=== PATIENT | male | born 1960 | race Caucasian/White ===

== ENCOUNTER 2024-01-09 17:53 | Emergency (ER) | payer BC, SELFPAY ==
[2024-01-09 17:58] VITALS: BP 150/98; PULSE 109; RESP 16; TEMP 37.3; O2SAT 96; BMI 26.6
[2024-01-09] MEDS: MORPHINE 4 MG/ML INJ IVP (18:46)
[2024-01-09] MEDS: MIDAZOLAM HCL 1 MG/ML inj 2 MG IVP (18:46)
[2024-01-09 19:14] VITALS: PULSE 89; O2SAT 95
[2024-01-09 19:15] VITALS: PULSE 87; O2SAT 96
[2024-01-09 19:16] VITALS: BP 126/66; PULSE 86; O2SAT 95
--- NOTE | 2024-01-09 19:50 | ED.GENADULT ---
HPI - General Adult General Date Seen: 01/09/24 Chief complaint: Skin/Abscess/Foreign Body Stated complaint: abscess in bottom Time Seen by Provider: 01/09/24 18:03 Source: patient Mode of arrival: ambulatory Limitations: no limitations History of Present Illness HPI narrative: Patient is a 63-year-old male who describes himself as generally healthy. Last year, he had a perianal abscess, he says that he was going to have a procedure on it but then it sounds like it spontaneously drained and he will. He started feel like he was getting another 1 yesterday, he talk to his general surgeon in [place] who had seen him previously and was prescribed what sounds like Augmentin. He has been taking that, 2 doses worse, but symptoms have worsened to the point that it is now difficult for him to sit or bend over due to pain. He denies fevers, nausea, chills, vomiting or other systemic symptoms. He says that his surgeon in [place] does want him to get a CT scan since this is his 2nd episode of this, and that this is scheduled. Related Data Home Medications ?Medication ?Instructions ?Recorded ?Confirmed amoxicillin 875 mg-potassium 1 tab PO BID 01/09/24 01/09/24 clavulanate 125 mg tablet Allergies Allergy/AdvReac Type Severity Reaction Status Date / Time No Known Drug Allergies Allergy Verified 01/09/24 17:56 Review of Systems Status of ROS: Reports: 10 or more systems reviewed and unremarkable except as noted in History and below [facility] Social History Smoking Status: Never smoker How often do you have a drink containing alcohol: never AUDIT-C Alcohol total score: 0 Non-prescribed substance use: denies use Exam Narrative: Exam Narrative: Vital signs as noted above. In general, an alert, nontoxic male. He is lying gingerly on his back. Head: Normocephalic, atraumatic. Eyes: Pupils are equal reactive. Extraocular movements are full. Conjunctivae are normal. ENT: Mucous membranes are moist. Throat is normal. Neck: Supple without lymphadenopathy. Heart: Regular rate and rhythm. No murmur or rub. Lungs: Clear bilaterally. No increased work of breathing, crackles or wheezes. Abdomen: Soft and nontender. No organomegaly. Rectal: He has a palpable tender mass at about 11:00 a.m. in the perianal region. No drainage. Extremities: Well perfused. No edema. No calf tenderness. Pulses intact. Neurologic: Patient is alert and oriented to person and place. Speech is fluent. Face is symmetric. Moves all extremities equally. Affect: Normal. Skin: Warm and dry. Well perfused. Const: Vital Signs, click to edit/add: Vital Signs - 24 hr 01/09/24 17:58 01/09/24 19:14 01/09/24 19:15 Temperature 99.1 F Pulse Rate 89 87 Pulse Rate [Pulse Oximeter] 109 H Respiratory Rate 16 Blood Pressure Blood Pressure [Ri ght Upper Arm] 150/98 H Pulse Oximetry 96 95 96 Oxygen Delivery Me thod Room Air 01/09/24 19:16 Temperature Pulse Rate 86 Pulse Rate [Pulse Oximeter] Respiratory Rate Blood Pressure 126/66 Blood Pressure [Ri ght Upper Arm] Pulse Oximetry 95 Oxygen Delivery Me thod Documenting provider has reviewed patient's vital signs: yes Course Course ED Course: Patient was concerned about the degree of pain he was already having in terms of draining this. Therefore, we put in an IV, he had 2 of Versed and 4 mg of morphine. We then proceeded with incision and drainage. Procedure note: The area overlying the mass was anesthetized with lidocaine with epinephrine. I then used 16 gauge needle on a syringe and was able to pull out about 5 mL of pus. I then made an incision with a #10 Blade, approximately 1 cm in length. I broke up loculations and then palpated around the area to express as much pus as possible. He tolerated this well, no immediate complications. He rested here for a bit. Repeat vitals show tachycardia has resolved. He does not endorse any systemic symptoms, has a benign abdominal exam, and I think can be safely discharged. I am going to have him complete the course of Augmentin that he was already prescribed. Ibuprofen and/or Tylenol as needed, I have asked him to do Sitz bath as several times a day over the next week. He should be seen for recheck in the next week, and then he will follow up with his surgeon as planned for imaging. Return any time if he has recurrence of swelling or pain, new symptoms such as fever, chills, vomiting etcetera. Vital Signs Vital signs: Initial Vital Signs Temperature 99.1 F 01/09/24 17:58 Temperature Source Temporal Artery Scan 01/09/24 17:58 Pulse Rate 109 H 01/09/24 17:58 Respiratory Rate 16 01/09/24 17:58 Blood Pressure 150/98 H 01/09/24 17:58 Blood Pressure Mean 115 H 01/09/24 17:58 Blood Pressure Position Standing 01/09/24 17:58 Pulse Oximetry 96 01/09/24 17:58 Oxygen Delivery Method Room Air 01/09/24 17:58 Vital Signs Temperature 99.1 F 01/09/24 17:58 Pulse Rate 109 H 01/09/24 17:58 Respiratory Rate 16 01/09/24 17:58 Blood Pressure 150/98 H 01/09/24 17:58 Pulse Oximetry 96 01/09/24 17:58 Oxygen Delivery Method Room Air 01/09/24 17:58 Temperature 99.1 F 01/09/24 17:58 Pulse Rate 86 01/09/24 19:16 Respiratory Rate 16 01/09/24 17:58 Blood Pressure 126/66 01/09/24 19:16 Pulse Oximetry 95 01/09/24 19:16 Oxygen Delivery Method Room Air 01/09/24 17:58 Medications Administered Medications: Discontinued Medications Generic Name Dose Route Start Last Admin Trade Name Broderickq PRN Reason Stop Dose Admin Lidocaine/Epinephrine 5 ml 01/09/24 18:50 01/09/24 19:19 Lidocaine 1%-Epi 1:100,000 10 Ml INFILTRATI 01/09/24 18:51 5 ml ONCE ONE Administration Midazolam HCl 2 mg 01/09/24 18:17 01/09/24 18:46 Midazolam Hcl 1 Mg/Ml Inj IVP 01/09/24 18:18 2 mg ONCE ONE Administration Morphine Sulfate 4 mg 01/09/24 18:17 01/09/24 18:46 Morphine 4 Mg/Ml Inj IVP 01/09/24 18:18 4 mg ONCE ONE Administration Discharge Plan Discharge Clinical Impression: Abscess, perianal Patient Disposition: Home, Self-Care Condition: Improved Instructions: Abscess Incision and Drainage (DC) Additional Instructions: Continue your antibiotics. Ibuprofen and/or Tylenol as needed. Soak/sitz baths several times a day for the next week or so. Pain and swelling should gradually improve. If they are worsening or you have new symptoms such as fevers, chills, vomiting or abdominal pain, return to the emergency department right away. Please follow-up with your general surgeon in [place] as planned. I would recommend that someone recheck the wound and surrounding area in the next week. Prescriptions: No Action amoxicillin-pot clavulanate 875-125 mg tablet 1 tab PO BID Follow Up/Referrals: Provider,Not a Local [Primary Care Provider] - Stand Alone Forms: [employer] Info Instructions
[2024-01-09 20:02] VITALS: BP 123/71; PULSE 81; RESP 16; TEMP 37.3
== END 2024-01-09 20:03 | disposition home or self-care (01) ==
PROVIDERS: Emergency Provider Emergency Medicine
DX: K61.0 Anal abscess (principal)
CPT/HCPCS: 46050; 87070; 87077; 87186; 96374; 96375; 99283; 99284; J2250; J2270